=== PATIENT | male | born 1960 | race African-American/Black ===

== ENCOUNTER 2018-08-01 18:15 | Emergency (ER) | payer BC ==
[2018-08-01] MEDS ORDERED: IBUPROFEN 600 MG TABLET PO ONE (19:21)
--- NOTE | 2018-08-01 19:28 | ER Document Report ---
ED General - General TRAVEL OUTSIDE OF THE [place] IN LAST 30 DAYS: No - General Chief Complaint: Fall Injury Stated Complaint: FALL/HEAD AND BACK PAIN Time Seen by Provider: 08/01/18 19:03 - HPI Notes: 58-year-old male brought in by ambulance from urgent care after a fall from a ladder approximately 4 feet and hit the concrete. After he fell he states he was dazed for a couple of seconds and had some numbness and tingling in his arms and his legs that only lasted for a couple of seconds. He drove himself to the urgent care and was subsequently transferred to the emergency department. He endorses minimal neck pain rated 1-2, pain in his left flank that he rates as an 8 or 9. I had loss of consciousness, denies current numbness tingling of any of his extremities, denies weakness denies bladder dysfunction. Per EMS run report had EKG that showed sinus tachycardia. Patient arrived in a c-collar. (TERRI RAMACHANDRAN) Past Medical History - General Information source: Patient - Social History Smoking Status: Never Smoker Chew tobacco use (# tins/day): No Frequency of alcohol use: "couple of beers everyday" Drug Abuse: None Family History: Reviewed & Not Pertinent Patient has suicidal ideation: No Patient has homicidal ideation: No Endocrine Medical History: Reports: Hx Diabetes Mellitus Type 2 Renal/ Medical History: Denies: Hx Peritoneal Dialysis Review of Systems - Review of Systems Constitutional: No symptoms reported EENT: denies: Double vision Cardiovascular: denies: Chest pain, Dizziness, Lightheaded Respiratory: No symptoms reported Gastrointestinal: No symptoms reported Genitourinary: denies: Incontinence, Retention Skin: No symptoms reported Neurological/Psychological: denies: Confusion, Weakness Physical Exam - General General appearance: Appears well In distress: None - HEENT Head: Normocephalic Conjunctiva: Normal Extraocular movements intact: Yes - Respiratory Respiratory status: No respiratory distress Chest status: Nontender Breath sounds: Normal Chest palpation: Normal - Cardiovascular Rhythm: Regular Heart sounds: Normal auscultation, S1 appreciated, S2 appreciated Murmur: No - Abdominal Inspection: Normal Distension: No distension Bowel sounds: Normal Tenderness: Nontender - Back Back: Tender - TTP R flank - Extremities General upper extremity: Normal inspection, Nontender, Normal strength General lower extremity: Normal inspection, Nontender, Normal strength Hip: Normal, Nontender - Neurological Neuro grossly intact: Yes Orientation: AAOx4 Speech: Normal Additional 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 No: Weakness - Psychological Associated symptoms: Normal affect, Normal mood - Skin Skin Temperature: Warm Skin Moisture: Dry Skin Color: Normal - Vital signs Vitals: Temp Pulse Resp BP Pulse Ox 98 F 99 16 161/73 H 97 08/01/18 19:18 08/01/18 19:18 08/01/18 19:18 08/01/18 19:18 08/01/18 19:18 Course - Re-evaluation Re-evalutation: 08/01/18 19:50 Attempted to clear C-spine using Nexus criteria. Patient was alert and oriented x4, no midline cervical tenderness on bony palpation, patient endorsed having a beer or 2 after work, so decision was made to proceed to CT cervical spine and CT head without contrast. 08/01/18 20:[address] head and CT cervical spine returned as negative. No acute process in the brain no evidence of fracture in the C-spine. 08/01/18 20:[address] Stringer. Removed c-collar. Evaluated his back pain, the flank area, muscle pain. No concern for retroperitoneal bleed, abdomen is soft and nontender 08/01/18 23:53 (TERRI RAMACHANDRAN) 08/03/18 00:06 Evaluated patient at bedside with the mid-level provider. Patient's leg pain was adjacent to the gluteal cleft on the right side just below the line of the iliac crest. No concerns for any intra-abdominal pathology or retroperitoneal pathology as the patient's pain is very posterior. Abdomen soft nontender. Patient has negative radiographical studies. Will discharge patient home ( BRIAN STRINGER) - Vital Signs Vital signs: Temp Pulse Resp BP Pulse Ox 97.1 F 82 16 142/78 H 99 08/01/18 21:15 08/01/18 21:15 08/01/18 21:15 08/01/18 21:15 08/01/18 21:15 Discharge - Discharge Clinical Impression: Closed head injury Qualifiers: Encounter type: initial encounter Qualified Code(s): S09.90XA - Unspecified injury of head, initial encounter Condition: Good Disposition: HOME, SELF-CARE Instructions: Contusion ([facility]), Head Injury Precautions ([facility]) Additional Instructions: You came to the emergency department today for a fall. It is okay to take Motrin and Tylenol for any aches and pains. Take Motrin make sure you take it with food or milk and try to avoid alcohol. The scan of your head and neck both showed that there is no injuries. If you have any change in mental status , dizziness, or new symptoms please return to the emergency department. Referrals: LAURA SETHI MD [Primary Care Provider] - Follow up as needed
--- NOTE | 2018-08-01 19:42 | RADIOLOGY REPORT (SQ) ---
EXAM DESCRIPTION: CT HEAD WITHOUT COMPLETED DATE/TIME: 08/01/2018 7:33 pm REASON FOR STUDY: Fall from ladder COMPARISON: None. TECHNIQUE: Axial images acquired through the brain without intravenous contrast. Images reviewed wi th bone, brain and subdural windows. Additional sagittal and coronal reconstructions were generated. Images stored on PACS. All CT scanners at this facility use dose modulation, iterative reconstruction, and/or weight based d osing when appropriate to reduce radiation dose to as low as reasonably achievable (ALARA). [facility]: Dose Right [facility]: CareDose [facility]: Dose Right [facility]: Teradose 4D [facility]: Smart [employer] RADIATION DOSE: CT Rad equipment meets quality standard of care and radiation dose reduction techniq ues were employed. CTDIvol: 53.2 mGy. DLP: 1044 mGy-cm. mGy. LIMITATIONS: None. FINDINGS: VENTRICLES: Normal size and contour. CEREBRUM: No masses. No hemorrhage. No midline shift. No evidence for acute infarction. Normal gra y/white matter differentiation. No areas of low density in the white matter. CEREBELLUM: No masses. No hemorrhage. No alteration of density. No evidence for acute infarction. EXTRAAXIAL SPACES: No fluid collections. No masses. ORBITS AND GLOBE: No intra- or extraconal masses. Normal contour of globe without masses. CALVARIUM: No fracture. PARANASAL SINUSES: No fluid or mucosal thickening. SOFT TISSUES: No mass or hematoma. OTHER: No other significant finding. IMPRESSION: NORMAL BRAIN CT WITHOUT CONTRAST. EVIDENCE OF ACUTE STROKE: NO. COMMENT: Quality ID # [id number]: Final reports with documentation of one or more dose reduction techniques (e.g., Automated exposure control, adjustment of the mA and/or kV according to patient size, use of iterative reconstruction technique) TECHNICAL DOCUMENTATION: JOB ID: [id number] [employer]- All Rights Reserved Reading location - IP/workstation name: [email or web address]
--- NOTE | 2018-08-01 19:44 | RADIOLOGY REPORT (SQ) ---
EXAM DESCRIPTION: CT CERVICAL SPINE WITHOUT COMPLETED DATE/TIME: 08/01/2018 7:33 pm REASON FOR STUDY: Fall from ladder COMPARISON: None. TECHNIQUE: Axial images acquired through the cervical spine without intravenous contrast. Images re viewed with lung, soft tissue and bone windows. Reconstructed coronal and sagittal MPR images review ed. Images stored on PACS. All CT scanners at this facility use dose modulation, iterative reconstruction, and/or weight based d osing when appropriate to reduce radiation dose to as low as reasonably achievable (ALARA). [facility]: Dose Right [facility]: CareDose [facility]: Dose Right [facility]: Teradose 4D [facility]: Smart [employer] RADIATION DOSE: CT Rad equipment meets quality standard of care and radiation dose reduction techniq ues were employed. CTDIvol: 20.2 mGy. DLP: 504 mGy-cm. mGy. LIMITATIONS: None. FINDINGS: ALIGNMENT: Anatomic. MINERALIZATION: Normal. VERTEBRAL BODIES: No fractures or dislocation. DISCS: Degenerative disc disease C5-6 and C6-7. FACETS, LATERAL MASSES, POSTERIOR ELEMENTS: No fractures. No dislocation. No acute findings. HARDWARE: None in the spine. VISUALIZED RIBS: No fractures. LUNG APICES AND SOFT TISSUES: No significant or acute findings. OTHER: No other significant finding. IMPRESSION: NO ACUTE OR SIGNIFICANT FINDINGS IN THE CERVICAL SPINE. TECHNICAL DOCUMENTATION: JOB ID: [id number] Quality ID # [id number]: Final reports with documentation of one or more dose reduction techniques (e.g., Au tomated exposure control, adjustment of the mA and/or kV according to patient size, use of iterative reconstruction technique) 2010 [employer]- All Rights Reserved Reading location - IP/workstation name: [email or web address]
[2018-08-01] MEDS ORDERED: LIDOCAINE 4% TRANSPARENT DRESSING 5 GM KIT TP ONE (20:30)
[2018-08-02 03:30] VITALS: BP 142/78
== END 2018-08-01 21:15 | disposition home or self-care (01) ==
LOC: ER 18:15
DX: S09.90XA Unspecified injury of head, initial encounter (principal); R51 Headache; R20.0 Anesthesia of skin; M54.9 Dorsalgia, unspecified; W11.XXXA Fall on and from ladder, initial encounter; E11.9 Type 2 diabetes mellitus without complications
CPT/HCPCS: 99284; 70450; 72125; J3490